=== PATIENT | female | born 2000 | race Caucasian/White ===

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

== ENCOUNTER 2021-08-28 12:12 | Emergency (ER) | payer MEDICAID, OTHER ==
[~2021-08-28] VITALS: Ht 147.3 cm; Wt 54.0 kg
[2021-08-28] MEDS ORDERED: ONDANSETRON HCL 4MG/2ML INJ IV STA (12:16)
[2021-08-28] MEDS ORDERED: KETOROLAC 30MG/ML VIAL IV STA (12:16)
[2021-08-28] MEDS ORDERED: METOCLOPRAMIDE HCL 10MG/2ML VIAL IV STA (12:16)
[2021-08-28] MEDS ORDERED: SODIUM CHLORIDE 0.9% 1,000 ML IV ONE (12:30)
[2021-08-28 12:55] LABS: HEMATOCRIT. 40.3 % (36.0-48.0); HEMOGLOBIN. 13.3 g/dL (12.0-16.0); MEAN CORPUSCULAR HEMOGLOBIN 30.5 pg (28.0-32.0); MEAN CORPUSCULAR VOLUME 92.5 fL (81.0-99.0); PLATELET 240 x1000/uL (130-400); RED BLOOD CELL COUNT 4.36 mill/uL (4.2-5.4); RED CELL DISTRIBUTION WIDTH 14.6 % (11.6-14.6)
[2021-08-28 13:04] LABS: CHLORIDE 106 mEq/L (98-107)
[2021-08-28 13:06] LABS: HCG SCREEN NEGATIVE
[2021-08-28 13:20] LABS: PLATELET ESTIMATE NORMAL
[2021-08-28 14:51] VITALS: BP 103/54
[2021-08-28 15:08] LABS: CLARITY URINE CLEAR (CLEAR); COLOR URINE YELLOW (YELLOW); KETONES URINE 2+ (NEGATIVE); LEUKOCYTE ESTERASE URINE NEGATIVE (NEGATIVE); NITRITE URINE NEGATIVE (NEGATIVE); OCCULT BLOOD URINE NEGATIVE (NEGATIVE); PH URINE >=9.0 (4.5-8.0); PROTEIN URINE 1+ (NEGATIVE); SPECIFIC GRAVITY URINE 1.034 (1.005-1.030); UROBILINOGEN URINE 0.2 E.U./dL (0.2-1.0)
[2021-08-28] MEDS ORDERED: IBUP-2028 MT (18:30)
== END 2021-08-28 18:57 | disposition home or self-care (01) ==
LOC: ER 12:23
DX: R10.84 Generalized abdominal pain (principal)
CPT/HCPCS: 36415; 76856; 80053; 81003; 81025; 83605; 83690; 84703; 85025; 96361; 96374; 96375; 99284; J1885; J2765; J7030